=== PATIENT | male | born 1950 | race Caucasian/White ===

== ENCOUNTER → 2016-09-27 | Day surgery (SDC) | payer MEDICARE ==
[~2016-09-27] VITALS: Ht 188 cm; Wt 97.7 kg
[~2016-09-27] MED LIST: AMLO10TA2 PO; ASPI81TA81 PO; ATEN25TA PO; BUPIVACAINE/EPINEPHRINE 0.5% PF 30 ML VIAL ONE; CLOP75TA PO; DO NOT ADM ANY ANTICOAGULANT DRUGS XX PRN; ENAL20TA PO; FAMOTIDINE 20 MG/2 ML VIAL ONE; GLIP10TA6 PO; HEPARIN SODIUM - IV 10,000 UNITS/10 ML VIAL ONE; HEPARIN SODIUM - SQ 10,000 UNITS/ML VIAL ONE; INSULIN HUMAN REGULAR 1,000 UNITS/10 ML VIAL SQ PRN; IOHEXOL 300 MG/ML 50 ML BTL (for RAD DIAG) IV ONE; ISOS60TA PO; LACTATED RINGER'S 1000 ML IV SCH; METOPROLOL TARTRATE 25 MG TAB PO PRN; MIDAZOLAM HCL 2 MG/2 ML VIAL ONE; MORPHINE SULFATE 4 MG/ML INJ ONE; OMEG100010 PO; PROPOFOL 200 MG/20 ML AMP IV ONE; ROSU1TAB6 PO; SODIUM CHLORID 0.9% 500 ML INJ 500 ML IV ONE; SODIUM CHLORID 0.9% 500 ML IV SCH; ceFAZolin 1,000 MG/NS 100 ML IV SCH; ePHEDrine/NS 25 MG/5 ML SYR IV ONE
[2016-09-27 07:35] LABS: AUTOMATED NEUTROPHIL # 3.9 TH/MM3 (1.8-7.7); BASOPHIL # 0.1 TH/MM3 (0-0.2); EOSINOPHIL # 0.2 TH/MM3 (0-0.4); EOSINOPHIL % 3.3 % (0.0-4.0); HEMATOCRIT 38.4 % (39.0-51.0); HEMO FLAGS DIFF FINAL; LYMPH % 33.5 % (9.0-44.0); LYMPHOCYTE # 2.5 TH/MM3 (1.0-4.8); MEAN CELL VOLUME 87.3 FL (80.0-100.0); MEAN CORPUSCULAR HEMOGLOBIN 31.1 PG (27.0-34.0); MEAN CORPUSCULAR HGB CONC 35.6 % (32.0-36.0); MONO % 9.4 % (0.0-8.0); NEUT % 52.8 % (16.0-70.0); PLATELET COUNT 155 TH/MM3 (150-450); RED CELL DISTRIBUTION WIDTH 13.8 % (11.6-17.2); WHITE BLOOD COUNT 7.4 TH/MM3 (4.0-11.0)
[2016-09-27 07:36] VITALS: BP 141/61; PULSE 47; RESP 16; TEMP 97.5; O2SAT 99
[2016-09-27 07:42] LABS: PROTHROMBIN TIME - PATIENT 10.3 SEC (9.8-11.6)
[2016-09-27 07:45] LABS: APTT (PATIENT) 24.8 SEC (24.3-30.1); INTERNATIONAL NORMALIZED RATIO 0.9 RATIO
[2016-09-27 07:57] LABS: BICARBONATE 23.2 MEQ/L (21.0-32.0)
[2016-09-27 08:08] LABS: POTASSIUM 4.5 MEQ/L (3.5-5.1)
[2016-09-27 15:15] VITALS: BP 154/65; PULSE 57; RESP 18; TEMP 97.4; O2SAT 99
--- NOTE | 2016-09-28 22:49 | EKG ---
Date Performed: 09/27/2016 Time Performed: 07:05:12 PTAGE: 65 years EKG: SINUS BRADYCARDIA INFERIOR MYOCARDIAL INFARCTION , PROBABLY OLD ABNORMAL ECG NO PREVIOUS TRACING DOCTOR: Michelle Adair Interpretating Date/Time 09/28/2016 22:47:06
--- NOTE | 2016-10-31 07:58 | MP ---
cc: MARILY MORALES DATE OF SURGERY September 27, 2016 PREOPERATIVE DIAGNOSIS Disabling bilateral lower extremity claudication - preprocedure CT angiogram suggested left SFA stenosis involving previously placed stents. POSTOPERATIVE DIAGNOSIS Disabling bilateral lower extremity claudication - preprocedure CT angiogram suggested left SFA stenosis involving previously placed stents. PROCEDURE Selective left femoral-popliteal tibial angiography with intraarterial pressure measurements. SURGEON Marily Morales MD INFORMATICS PHARMACIST GARCÍA Cerda ANESTHESIA Local MAC. DESCRIPTION OF PROCEDURE With the patient in the supine position and under IV sedation, the lower abdomen, both groins and thighs were prepped with Betadine and draped in a sterile fashion. Following a protocol time-out, the skin and subcutaneous tissue surrounding proposed left common femoral access site was preemptively infiltrated with 0.5% Marcaine with epinephrine. Utilizing ultrasound guidance, an 18-gauge needle was inserted into the left mid-common femoral lumen, antegrade approach. A J-wire was advanced under fluoroscopic guidance into the proximal superficial femoral artery. A 5-Maori hemostatic sheath was deployed over the J-wire. Selective left femoral-popliteal tibial angiography was then completed by injecting diluted contrast through the sheath and side-arm in conjunction with digital fluoroscopic imaging. The preoperative CT angiogram on July 27, 2016, had suggested "left superficial stent in placed with potential stenosis just beyond the stent greater than 70%." No significant such stenosis was visualized. Instead, the stent and the SFA distal to the stent appeared widely patent as did the entire superficial femoral and popliteal arteries. [id number], the anterior and posterior tibial arteries were occluded. Single vessel runoff to the left ankle was provided by a patent, dominant peroneal. Pressure measurements were taken from the popliteal to the common femoral level. No pressure gradient was found. The sheath was removed and hemostasis achieved with compression. There were no operative complications. The patient returned to the recovery room in stable condition having tolerated the procedure well. Marily Morales MD JTS/SSB /3:31 PM /7:53 AM
== END | disposition home or self-care (01) ==
LOC: HCVO 06:37
PROVIDERS: ATTEND Surgery Vascular Surgery
DX: I70.713 Atherosclerosis of other type of bypass graft(s) of the extremities with intermittent claudication, bilateral legs (principal); I25.10 Atherosclerotic heart disease of native coronary artery without angina pectoris; I10 Essential (primary) hypertension; Z95.1 Presence of aortocoronary bypass graft
CPT/HCPCS: 01916; 36245; 75716; 80048; 82948; 85025; 85610; 85730; 86850; 86900; 86901; 93005; C1769; J0690; J1644; J2250; J2270; J3010; J7040; J7120; Q9967